=== PATIENT | female | born 1935 | race Caucasian/White ===

== ENCOUNTER 2019-01-06 18:17 | Emergency (ER) | payer MEDICARE, BC ==
--- NOTE | 2019-01-06 19:00 | Emergency Department Record ---
History of Present Illness - General Chief Complaint: Fall Injury Stated Complaint: FALL/ON BLOOD THINNERS/HIT HEAD Time Seen by Provider: 01/06/19 18:32 Source: Patient Mode of Arrival: Ambulatory Limitations: No limitations - History of Present Illness Initial Comments: pt was going upstairs when she fell and hit her face and right ribs. no loc MD Complaint: Fall Onset/Timin -: Minutes(s) Fall From: Other When Fall Occurred: Just prior to arrival Fall Witnessed: Yes, by family Place Fall Occurred: Home Loss of Consciousness: None Prolonged Down Time?: No Symptoms Prior to Fall: None Location: Face, Chest Severity: Moderate Severity scale (1-10): 5 Quality: Other Context: Tripped/slipped Associated Symptoms: Denies - [place] Coma Scale Eye Response: (4) Open spontaneously Motor Response: (6) Obeys commands Verbal Response: (5) Oriented [place] Total: 15 - Related Data Home Medications Medication Instructions Recorded Confirmed Last Taken Furosemide [Lasix] 20 mg PO DAILY 01/06/19 01/06/19 01/06/19 Metoprolol Tartrate [Lopressor] 50 mg PO DAILY 01/06/19 01/06/19 01/06/19 Potassium Chloride [Klor-Con 10] 20 meq PO DAILY 01/06/19 01/06/19 01/06/19 Warfarin Sodium 2 mg PO ASDIR 01/06/19 01/06/19 01/06/19 Allergies Allergy/AdvReac Type Severity Reaction Status Date / Time No Known Drug Allergies Allergy Verified 01/06/19 18:30 Travel Screening - Travel/Exposure Within Last 30 Days Have you traveled within the last 30 days?: No - Travel/Exposure Within Last Year Have you traveled outside the [place] in the last year?: No - Additonal Travel Details Have you been exposed to anyone with a communicable illness?: No - Travel Symptoms Symptom Screening: None Review of Systems Reviewed: No additional complaints except as noted below Constitutional: Reports: As per HPI. Denies: Chills, Fever, Malaise, Night sweats, Weakness, Weight change Eyes: Reports: As per HPI. Denies: Eye discharge, Eye pain, Photophobia, Vision change ENT: Reports: As per HPI. Denies: Congestion, Dental pain, Ear pain, Epistaxis, Hearing loss, Throat pain Respiratory: Reports: As per HPI. Denies: Cough, Dyspnea, Hemoptysis, Stridor, Wheezes Cardiovascular: Reports: As per HPI. Denies: Arrhythmia, Chest pain, Dyspnea on exertion, Edema, Murmurs, Orthopnea, Palpitations, Paroxysmal nocturnal dyspnea, Rheumatic Fever, Syncope Endocrine: Reports: As per HPI. Denies: Fatigue, Heat or cold intolerance, Polydipsia, Polyuria Gastrointestinal: Reports: As per HPI. Denies: Abdominal pain, Constipation, Diarrhea, Hematemesis, Hematochezia, Melena, Nausea, Vomiting Genitourinary: Reports: As per HPI. Denies: Abnormal menses, Discharge, Dyspareunia, Dysuria, Frequency, Hematuria, Incontinence, Retention, Urgency Musculoskeletal: Reports: As per HPI. Denies: Arthralgia, Back pain, Gout, Kathy nt swelling, Myalgia, Neck pain Skin: Reports: As per HPI. Denies: Bruising, Change in color, Change in hair/nails, Lesions, Pruritus, Rash Neurological: Reports: As per HPI. Denies: Abnormal gait, Confusion, Headache, Numbness, Paresthesias, Seizure, Tingling, Tremors, Vertigo, Weakness Psychiatric: Reports: As per HPI. Denies: Anxiety, Auditory hallucinations, Depression, Homicidal thoughts, Suicidal thoughts, Visual hallucinations Hematological/Lymphatic: Reports: As per HPI. Denies: Anemia, Blood Clots, Easy bleeding, Easy bruising, Swollen glands Past Medical History - SOCIAL HISTORY Smoking Status: Never smoker Alcohol Use: None Drug Use: None - RESPIRATORY Hx Respiratory Disorders: No - CARDIOVASCULAR Hx Cardio Disorders: Yes Hx Pacemaker/Defib: Yes - NEURO Hx Neuro Disorders: No - GI Hx GI Disorders: No - Hx Genitourinary Disorders: No - ENDOCRINE Hx Endocrine Disorders: No - MUSCULOSKELETAL Hx Musculoskeletal Disorders: No - PSYCH Hx Psych Problems: No - HEMATOLOGY/ONCOLOGY Hx Hematology/Oncology Disorders: Yes Hx Cancer: Yes (breast) Family Medical History Any Significant Family History?: No Physical Exam - General General Appearance: Alert, Oriented x3, Cooperative, Mild distress - Head Head exam: Normal inspection Head exam detail: Abrasion, Contusion, Laceration - Eye Eye exam: Normal appearance, PERRL, EOMI Pupils: Normal accommodation - ENT ENT exam: Normal exam, Mucous membranes moist, Normal external ear exam, Normal orophraynx Ear exam: Normal external inspection. negative: External canal tenderness Nasal Exam: Normal inspection. negative: Discharge, Sinus tenderness Mouth exam: Normal external inspection, Tongue normal Teeth exam: Normal inspection. negative: Dental caries Throat exam: Normal inspection. negative: Tonsillar erythema, Tonsillar exudate - Neck Neck exam: Normal inspection, Full ROM. negative: Tenderness - Respiratory Respiratory exam: Normal lung sounds bilaterally, Chest wall tenderness. negative: Respiratory distress - Cardiovascular Cardiovascular Exam: Regular rate, Normal rhythm, Normal heart sounds - GI/Abdominal GI/Abdominal exam: Soft, Normal bowel sounds. negative: Tenderness - Rectal Rectal exam: Deferred - exam: Deferred - Extremities Extremities exam: Normal inspection, Full ROM, Normal capillary refill. n egative: Tenderness - Back Back exam: Reports: Normal inspection, Full ROM. Denies: Muscle spasm, Rash noted, Tenderness - Neurological Neurological exam: Alert, CN II-XII intact, Normal gait, Oriented X3 - Psychiatric Psychiatric exam: Normal affect, Normal mood - Skin Skin exam: Dry, Intact, Normal color, Warm Course Vital Signs 01/06/19 01/06/19 18:21 18:43 Temperature 98.8 F 98.8 F Pulse Rate 102 H Pulse Rate [ 97 H Pulse Ox Probe] Respiratory 18 18 Rate Blood Pressure 146/94 [Left Arm] Pulse Ox 98 98 - Reevaluation(s) Reevaluation #1: 01/06/19 20:[address] neg, ribs neg, facial shows small r orbit fx, no entrapment. eomi Medical Decision Making - Lab Data Result diagrams: 01/06/19 19:05 01/06/19 19:05 Disposition Disposition: Discharge Clinical Impression: Head injury Qualifiers: Encounter type: initial encounter Qualified Code(s): S09.90XA - Unspecified injury of head, initial encounter Orbital fracture Qualifiers: Encounter type: initial encounter Fracture type: closed Qualified Code(s): S02.80XA - Fracture of other specified skull and facial bones, unspecified side, initial encounter for closed fracture Contusion of rib on right side Qualifiers: Encounter type: initial encounter Qualified Code(s): S20.211A - Contusion of right front wall of thorax, initial encounter Disposition: Home, Self-Care Condition: (1) Good Instructions: Fall Prevention for Older Adults (ED), Facial Fracture (ED), Rib Contusion (ED), Head Injury (ED) Additional Instructions: follow up with family doctor. return sooner if worse. sleep elevated. skip coumadin tonight. ice to sore areas. tylenol for pain.deep inspiration 5times an hour. if double vision develops see physician alena Quality - Quality Measures Quality Measures: N/A - Blood Pressure Screening Does Patient Have Any of the Following: Active Dx of HTN Blood Pressure Classification: Hypertensive Reading Systolic Measurement: 146 Diastolic Measurement: 94 Screening for High Blood Pressure: Patient Exclusion, Hx of HTN [[id number]]
[2019-01-06 19:10] LABS: ABSOLUTE NEUTROPHIL COUNT 4.15; BASO % 0.3 % (0-6); EOS % 0.9 % (0-6); GRAN % 64.9 % (47-80); HEMATOCRIT 43.8 % (35.0-47.0); HEMOGLOBIN 14.7 gm/dl (11.6-16.0); LYMPH % 25.3 % (16-45); MEAN CELL VOLUME 90.5 fl (81-97); MEAN CORPUSCULAR HEMOGLOBIN 30.4 pg (27-33); MEAN CORPUSCULAR HGB CONC 33.6 g/dl (32-36); MEAN PLATELET VOLUME 9.5 fl (7.4-10.4); MONO % 8.6 % (0-9); PLATELET COUNT 223 K/uL (130-400); RED BLOOD COUNT 4.84 M/uL (3.80-5.40); RED CELL DISTRIBUTION WIDTH 13.4 % (11.5-14.5); WHITE BLOOD COUNT W/O DIFF 6.4 K/uL (4.2-12.2)
[2019-01-06 19:22] LABS: INR 2.5; PROTHROMBIN TIME (PATIENT) 24.9 SECONDS (9.5-12.1)
[2019-01-06 19:24] LABS: BLOOD UREA NITROGEN 19 mg/dL (8-23); CREATININE 0.7 mg/dL (0.5-0.9); EST GLOMERULAR FILTRATION RATE > 60 mL/min
[2019-01-06 19:25] LABS: TOTAL PROTEIN 7.9 g/dL (6.6-8.7)
[2019-01-06 19:27] LABS: GLUCOSE,RANDOM 163 mg/dL (74-109)
[2019-01-06 19:29] LABS: ALT/SGPT 12 U/L (<33)
[2019-01-06 19:30] LABS: ALB/GLOB RATIO 1.2 (1.1-1.8); ALBUMIN 4.3 g/dL (4.0-5.0); ALKALINE PHOSPHATASE 57 U/L (35-104); AST/SGOT 18 U/L (10.0-35.0)
--- NOTE | 2019-01-08 09:04 | CT SCAN REPORT ---
EXAM: HEAD CT WITHOUT CONTRAST HISTORY: PATIENT FELL WITH FRONTAL HEADACHE. ON BLOOD THINNER. TECHNIQUE: Axial CT scan of the head was performed without IV contrast. Comparison: None. Encounter: Initial. FINDINGS: No definite acute intracranial hemorrhage identified. No focal mass effect or midline shift evident. Moderate generalized atrophy. 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 No definite acute infarct or intracranial mass lesion seen. IMPRESSION: 1. GENERALIZED ATROPHY WITH CHRONIC APPEARING DEEP WHITE MATTER CHANGES. 2. NO DEFINITE ACUTE INTRACRANIAL HEMORRHAGE OR FOCAL MASS EFFECT IDENTIFIED. JOB NUMBER: [id number] [facility]
--- NOTE | 2019-01-08 09:11 | CT SCAN REPORT ---
EXAM: CT OF THE MAXILLOFACIAL BONES WITHOUT CONTRAST HISTORY: PATIENT FELL WITH SMALL LACERATION ON BRIDGE OF NOSE. TECHNIQUE: Axial CT scan of the facial bones was performed without IV contrast. Comparison: No prior facial bone CT with which to compare. Encounter: Initial. FINDINGS: There is a minor defect along the medial wall of the right orbit with a thin layer of soft tissue density along the medial wall of the orbit lateral to the bony wall indentation. This is consistent with a small blowout fracture of the medial wall of the right orbit. Somewhat difficult to be certain of the age of this although cannot exclude an acute fracture with an associated small amount of soft tissue density with this. Elsewhere no appearance to suggest an acute facial bone fracture identified. There is some deviation of the nasal septum to the left. Prominent degenerative change at the odontoid-anterior arch of C1 articulation. Fairly extensive metallic dental work and there are probably some dental caries present in several of the remaining teeth as well as likely some root resorption involving several teeth. Dental consultation may be useful. No air fluid levels are evident in the paranasal sinuses. IMPRESSION: 1. APPEARANCE CONSISTENT WITH A SMALL BLOWOUT FRACTURE OF THE MEDIAL WALL OF THE RIGHT ORBIT OF UNCERTAIN AGE. 2. NO OTHER FACIAL BONE FRACTURES IDENTIFIED. JOB NUMBER: [id number] [facility]
--- NOTE | 2019-01-08 09:33 | RADIOLOGY REPORT ---
EXAM: RIGHT RIBS WITH PA CHEST HISTORY: PATIENT FELL WITH RIGHT MID ANTERIOR RIB PAIN. TECHNIQUE: AP and oblique views of the right ribs and a PA view of the chest were obtained. Comparison: No prior chest or rib series with which to compare. Encounter: Initial. FINDINGS: The patient has a pacemaker battery pack overlying the right mid to upper chest which obscures portions of the ribs on numerous views, however, no definite acute fracture of the right ribs identified. On the chest x-ray, no definite pneumothorax or pleural effusion evident. Calcification and mild torsion of the aorta. Postop reversed type left shoulder arthroplasty. Mild thoracic curve to the right. Hypertrophic spurring in the thoracic spine. IMPRESSION: NO DEFINITE RIGHT RIB FRACTURE IDENTIFIED. JOB NUMBER: [id number] [facility]
== END 2019-01-06 20:44 | disposition home or self-care (01) ==
LOC: ER 18:17
DX: S02.31XA Fracture of orbital floor, right side, initial encounter for closed fracture (principal); S20.211A Contusion of right front wall of thorax, initial encounter; S01.21XA Laceration without foreign body of nose, initial encounter; S09.90XA Unspecified injury of head, initial encounter; W10.9XXA Fall (on) (from) unspecified stairs and steps, initial encounter; Y92.009 Unspecified place in unspecified non-institutional (private) residence as the place of occurrence of the external cause; I10 Essential (primary) hypertension; Z79.01 Long term (current) use of anticoagulants; Z95.810 Presence of automatic (implantable) cardiac defibrillator
CPT/HCPCS: 70450; 70486; 80053; 85025; 85610; 99285